=== PATIENT | female | born 1945 | race Caucasian/White ===

== ENCOUNTER 2022-11-15 12:55 | Emergency (ER) | payer MEDICARE, MEDICAID, SELFPAY ==
[2022-11-15] VITALS (13 sets, daily range): BP systolic 122–172; BP diastolic 62–125; PULSE 76–115; RESP 9–20; TEMP 36.8; O2SAT 90–99; BMI 26.6
[2022-11-15] MEDS: HYDROmorphone 1 MG/ML Syringe 0.5 MG IV ×2 (13:41→17:29)
[2022-11-15 14:22] LABS: Absolute Lymphocyte Count 1.93 X10^3/uL (0.83-4.51); Basophil# 0.03 X10^3/uL; Basophil% 0.4 % (0-1); Eosinophil# 0.41 X10^3/uL; Eosinophils% 5.3 % (0-5); Hematocrit 35.3 % (37-47); Hemoglobin 11.3 g/dL (12.0-15.0); Lymphocyte # 1.93 X10^3/ul (0.83-4.51); Lymphocyte % 24.9 % (19-41); Mean Corpuscular Hgb 30.7 pg (27.0-32.0); Mean Corpuscular Volume 95.9 fL (81-99); Mean Platelet Vol. 10.4 fl (6.2-12.0); Monocyte# 0.38 X10^3/uL; Monocyte% 4.9 % (0-10); NRBC Flagged by Analyzer 0 % (0-5); Neutrophil # 4.96 X10^3/uL (2.7-7.7); Neutrophil % 64.1 % (47-70); Platelet Count 249 K/mm3 (150-450); RBC Distribution Width CV 14.6 % (11.6-14.6); RBC Distribution Width SD 50.8 fl (35.1-43.9); Red Blood Count 3.68 M/mm3 (4.2-5.4); White Blood Count 7.7 K/mm3 (4.4-11.0)
[2022-11-15 14:34] LABS: Anion Gap 5 (5-15); BUN 22 mg/dL (7-18); BUN/Creat Ratio 42.5 RATIO (10-20); Calcium,Total 9.3 mg/dL (8.5-10.1); Chloride 102 mmol/L (98-107); Creatinine, Serum 0.52 mg/dL (0.55-1.02); EST Glomerular Filtration Rate 122 mL/min (>60); Est Glom Filt Rate - Afr Amer 148 mL/min (>60); Estimated Creatinine Clearance 43.07 ml/min; Glucose 139 mg/dL (74-106); Sodium Level 137 mmol/L (136-145)
--- NOTE | 2022-11-15 15:11 | EX.ED.DYSGE1 ---
HPI History of Present Illness Chief Complaint: Abd Pain Informant: patient and spouse/S.O. Onset/Context/Timing Onset: Weeks (9) Timing: Continuous Quality: Sharp, aching Location: Abdomen Narrative Narrative: Patient presents with abdominal pain that became worse today. Patient was recently discharged from [facility] to [facility]. Upon arrival to [facility] today, the nursing staff realized that they were unable to care for the patient at [facility]. Nursing staff at [facility] then called EMS to transfer the patient to the emergency department. Patient denies any fevers or chills. Patient states she has been getting injections of Dilaudid for her pain. Patient had bowel surgery for a bowel obstruction 9 weeks ago. The wound was left open at that time. Patient has been having wound care changes daily. Patient has been having persistent drainage from the wound. Patient and states that this is not any worse or not any better. PFSH PFSH Medical History (Updated 11/15/22 @ 17:[address] Darian Rodríguez DO) Diabetes High blood cholesterol High blood pressure Large bowel obstruction Multiple sclerosis Allergy/AdvReac Type Severity Reaction Status Date / Time acetazolamide Allergy Hives Verified 11/15/22 13:09 Barbiturates Allergy Angioedema Verified 11/15/22 13:09 Benzodiazepines Allergy Angioedema Verified 11/15/22 13:09 diazepam Allergy Angioedema Verified 11/15/22 13:09 Hydantoins Allergy Hives Verified 11/15/22 13:09 levofloxacin [From Levaquin] Allergy Itching Verified 11/15/22 13:09 phenytoin Allergy Anaphylaxis Verified 11/15/22 13:09 Quinolones Allergy Hives Verified 11/15/22 13:09 Sulfa (Sulfonamide Allergy Anaphylaxis Verified 11/15/22 13:09 Antibiotics) ondansetron [From Zofran] AdvReac Other Verified 11/15/22 13:09 Surgical History (Updated 11/15/22 @ 15:[address] Darian Rodríguez DO) History of bowel resection Social History Smoking Status: Never smoker ROS ROS ED Constitutional Constitutional ED: Denies chills or fever(s) Eyes Eyes: Denies blurry vision or change in vision ENT ENT ED: Denies rhinorrhea or sore throat Cardiovascular Cardiovascular: Denies chest pain or palpitations Respiratory/Chest Respiratory/Chest: Denies cough or dyspnea Gastrointestinal Gastrointestinal: Reports abdominal pain; Denies nausea or vomiting Genitourinary Genitourinary ED: Denies dysuria or hematuria Musculoskeletal Musculoskeletal: Denies back pain or neck pain Integumentary Denies abscess or rash Neurologic Neurologic: Denies headache(s) or weakness Allergic/Immunologic Allergic/Immunologic ED: Denies mouth swelling or urticaria EXAM Physical Exam Const Vital Signs: 11/15/22 12:58 11/15/22 15:10 Temperature 98.3 F Temperature Source Temporal Pulse Rate 93 92 Respiratory Rate 20 H 15 Blood Pressure 172/125 H Blood Pressure Mean 140 Pulse Ox 91 93 Oxygen Delivery Method Nasal Cannula Room Air Positive well nourished and well developed General Appearance ED: well developed and NAD HEENT Reports moist mucous membranes Neck supple and no JVD Resp normal respiratory effort and clear to auscultation bilaterally Cardio regular rate and regular rhythm GI GI Narrative: There is an open wound over the abdomen in the midline. There is some serous discharge and drainage. There is some mild surrounding healing erythema. There is diffuse tenderness. Extremity General Extremety ED: Negative for edema or tenderness General Extremity: Negative for edema Neuro oriented x3, CN's II-XII intact bilaterally and no sensory deficits noted Sensorium / Orientation: alert Motor Exam: strength 5/5 throughout Psych mental status grossly normal MDM MDM MDM Narrative Medical decision making narrative: Differential diagnosis includes postoperative wound infection, dehydration, and electrolyte abnormality. CBC will be obtained to assess for anemia and leukocytosis. Basic metabolic profile will be obtained to assess for electrolyte abnormality and renal function. Lab Data Attestation: I reviewed the patient's lab results. Lab results narrative: CBC was reviewed. There is a mild anemia with a hemoglobin of 11.3 and hematocrit 35.3. White blood cell count was normal. Basic metabolic profile was reviewed and was essentially within normal limits. Glucose was slightly elevated at 139. Labs: Laboratory Results - last 24 hr 11/15/22 11/15/22 14:15 14:15 WBC 7.7 RBC 3.68 L Hgb 11.3 L Hct 35.3 L MCV 95.9 MCH 30.7 MCHC 32.0 RDW Std Deviation 50.8 H RDW Coeff of Denia 14.6 Plt Count 249 MPV 10.4 Immature Gran % (Auto) 0.400 Neut % (Auto) 64.1 Lymph % (Auto) 24.9 [place] % (Auto) 4.9 Eos % (Auto) 5.3 H Baso % (Auto) 0.4 Absolute Neuts (auto) 5.0 Absolute Lymphs (auto) 1.93 Nucleated RBC % 0 Sodium 137 Potassium 4.0 Chloride 102 Carbon Dioxide 30.0 Anion Gap 5 BUN 22 H Creatinine 0.52 L Estim Creat Clear Calc 43.07 Est GFR (MDRD) Af Amer 148 Est GFR (MDRD) Non-Af 122 BUN/Creatinine Ratio 42.5 H Glucose 139 H Calcium 9.3 Treatment and Re-Evaluation :: Patient was given a dose of Dilaudid here. [employer] was consulted to see if the patient can be discharged back to [facility] or if the patient could be discharged to a different extended care facility that can care for the patient. [employer] discussed the case with the administration at [facility]. She stated that since the patient was had a long-term acute care facility prior to being discharged to [facility], the patient would need to be discharged back to [facility]. [facility] was in touch with Dr. Duke who will attempt to adjust the patient's medications to formulations that they can care for at [facility]. Patient was advised of this. Patient will be discharged back to [facility] when Dr. Duke can adjust the patient's medications. Patient understands and is agreeable with the plan. All questions were answered. Discharge Plan Triage Chief Complaint: Abd Pain Other Complaint: Meds Only ED Provider: Darian Rodríguez Dx/Rx/DC Orders Clinical Impression: Post-operative pain, Open wound of abdominal wall Instructions: ED Post Op Wound Check, Pain Stand Alone Forms: ED Work / School Excuse Primary Care Provider: NIGEL GRACE CNP Referrals: NIGEL GRACE CNP [Other] - As Needed Demar Duke MD [Med Staff - Active Staff] - 3-5 Days [facility] Doctor,Out of [Non-Staff] - As Needed Disposition Disposition: Custodial Facility Discharge Location: [facility]
--- NOTE | 2022-11-15 18:45 | CM.ED ---
Social Work Date of Intervention: 11.15.2022 Interventions occurring between 1550 and 184 Received call from Melissa MAYS who reports Dr. Rodríguez would like SW assist for discharge planning. [facility] a [facility], but the [facility] ([facility]) sent patient to the ED stating cannot take care of the patient. Concern about IV push medications and IV cardiace medicine. Patient was reportedly only at [facility] for about 2 hours, arriving from [facility], before patient was sent to [facility] ED. Called [facility] admissions, Gomez and left message to call this senior copywriter. Then call corporate admissions worker, Cheri, to discuss. Cheri aware of this patient and confirmed the issues as to why patient cannot be cared for at [facility]. Cheri reports [facility] to [facility] and the continuation orders reportedly did not arrive to [facility] until after patient was in the building. Discussed with Cheri that it seems that if patient was just discharged from [facility] today, then not appropriate to send to [facility] again, and no new acute reason to admit to the hospital so [facility] level of care seems most appropriate. Discussed that maybe the SNF medical research associate needs to take a look at patient's medications, and collaborate with [facility] physician as to whether some of the IV meds were really needed at discharge and what alternatives may be. Cheri reports will do some checking on things on her end. This senior copywriter confirmed with Dr. Rodríguez, there is no reason to admit patient to the hospital. ED physician also not going to change the SNF medication, and would be more appropriate for the SNF doctor to address. Spoke with Cheri again who has spoken with the linux vm[employer] administrator. There is RN coverage to address the IV push medications, and the web operations administrator will talk with medical research associate about reviewing other medications. Let Cheri know that patient will be discharged back to [facility], but the ED can give [facility] some time to get the meds sorted out before sending patient back. Cheri expressed thanks. Received notice from Cheri that medications are sorted out at the SNF and the SNF is ready to take patient back when ready. Thanked Cheri for the collaboration. Update Melissa MAYS that patient can return to [facility], but need to call report beforehand. No other services requested or indicated. Plan: Return to [facility] where patient is receiving skilled care. -JANELL Borja, EMPLOYEE RELATIONS DIRECTOR
--- NOTE | 2022-11-15 20:55 | ED.RN ---
Dressing changed before pt d/c. Abd wound is open and constantly oozing green/ yellow liquid. Pt skin is irritated around site. Report called to prison before pt left [facility].
== END 2022-11-15 20:57 | disposition skilled nursing facility (03) ==
PROVIDERS: Emergency Provider Emergency Medicine; PCP Internal Medicine; Visit Provider Emergency Medicine
DX: S31.109A Unspecified open wound of abdominal wall, unspecified quadrant without penetration into peritoneal cavity, initial encounter (principal); E11.9 Type 2 diabetes mellitus without complications; E78.00 Pure hypercholesterolemia, unspecified; G89.18 Other acute postprocedural pain; I10 Essential (primary) hypertension
CPT/HCPCS: 80048; 85025; 96374; 96376; 99285; A4216